=== PATIENT | male | born 1955 | race Caucasian/White ===

== ENCOUNTER 2017-04-18 16:35 | Outpatient (CLI) | payer OTHER ==
--- NOTE | 2017-04-18 17:22 | DIAGNOSTIC IMAGING REPORT ---
PROCEDURE: XR HIP 2VW W W/O AP PELVIS-RT INDICATION: JOINT PAIN TECHNIQUE: AP view of the pelvis and hips with lateral view of the right hip. COMPARISON: None. FINDINGS: Right HIP: There is osteoarthritis involving the right hip with joint space narrowing and sclerosis of the acetabulum. PELVIS: Osseous pelvis is normal. IMPRESSION: 1. Negative pelvis 2. osteoarthritis right hip.
== END 2017-04-18 23:00 ==
LOC: XR SRH 16:35
DX: M16.11 Unilateral primary osteoarthritis, right hip (principal)